=== PATIENT | male | born 1975 | race Caucasian/White ===

== ENCOUNTER → 2016-02-29 | Outpatient (CLI) | payer BC, OTHER ==
[~2016-02-29] MED LIST: ATOR-26 PO; FAMO20TA11 PO; MULT-506 PO
[2016-02-29 17:23] LABS: CHOLESTEROL/HDL RATIO 3.3
== END | disposition home or self-care (01) ==
LOC: C.LABPVFM 14:02
PROVIDERS: ATTEND Family Medicine
DX: E78.00 Pure hypercholesterolemia, unspecified (principal)

== ENCOUNTER → 2016-06-12 | Day surgery (SDC) | payer BC ==
[2016-06-01 13:55] VITALS: Ht 193 cm; Wt 82.3 kg
[~2016-06-12] VITALS: Ht 193 cm; Wt 82.3 kg
[~2016-06-12] MED LIST changes: +LIDOCAINE HCL 2% 2 ML VIAL (20MG/ML) ONE; +MIDAZOLAM HCL 1 MG/ML 2ML VIAL ONE; +ONDANSETRON INJ 2 MG/ML 2 ML VIAL ONE; +PROPOFOL IV EMULSION 10 MG/ML 20 ML VIAL IV ONE; +SODIUM CHLORIDE 0.9% 500ML 500 ML IV ONE
--- NOTE | 2016-06-12 13:23 | Endo History and Physical ---
History & Physical Date of Service: Jun 12, 2016. Chief Complaint: FAMILY HX OF STOMACH CA Referring Physician: DR. EID History of Present Illness 40 yo CM who presents for EGD secondary to family history of stomach cancer. Past Medical History Gastrointestinal Disorder, Reflux, High Cholesterol Past Surgical History Hx Cardiac Surgery: No Hx Internal Defibrillator: No Hx Pacemaker: No Hx Abdominal Surgery: No Hx of Implantable Prosthesis: No Hx Post-Op Nausea and Vomiting: No Hx Cancer Surgery: No Hx Thoracic Surgery: No Hx Orthopedic: No Hx Urinary Tract Surgery: No Family History Colon CA, Polyp Social History Smoking Status: Never Smoker Hx Substance Use: No Hx Alcohol Use: Yes (OCCASSIONALLY) Allergies Coded Allergies: No Known Allergies (Verified , OTHER, 06/01/16) Current Medications Reported Home Medications Medications Dose Route/Sig Max Daily Dose Days Date Category Multivitamin (Multivitamins) Tab 1 Tab PO QAM 05/10/15 Reported Pepcid (Famotidine) 20 Mg Tab 20 Mg PO QAM 05/10/15 Reported Lipitor (Atorvastatin Calcium) 80 Mg Tab 80 Mg PO HS 05/26/14 Reported Vital Signs Weight (Kilograms): 82.27 Height (Feet): 6 Height (Inches): 4 Date Time Temp Pulse Resp B/P Pulse Ox O2 Delivery O2 Flow Rate FiO2 06/12/16 13:19 36.8 68 16 137/83 98 Room Air Physical Exam General Appearance: WD/WN, no apparent distress Respiratory/Chest: Auscultation: breath sounds normal Cardiovascular: Heart Auscultation: RRR Abdomen: Bowel Sounds: normal Inspection & Palpation: soft, non-distended, no tenderness, guarding & rebound Assessment and Plan Assessment: 40 yo CM who presents for EGD secondary to family history of stomach cancer. Plan: Proceed with EGD.
--- NOTE | 2016-06-12 14:11 | Discharge Instructions ---
Endoscopy Patient Instructions Date / Procedure(s) Performed Jun 12, 2016. EGD Allergy Information Coded Allergies: No Known Allergies (Verified , OTHER, 06/12/16) Discharge Date / Findings Jun 12, 2016. Gastric polyp s/p biopsies Medication Instructions OK to resume all medications today as prescribed Provider Instructions Activity Restrictions - No exercising or heavy lifting for 24 hours. - Do not drink alcohol the day of the procedure. - Do not drive a car or operate machinery until the day after the procedure. - Do not make any important decisions or sign important papers in 24 hours after the procedure. Following Day: - Return to full activity which may include returning to work/school. Diet Start your diet with liquids and light foods (jello, soup, juice, toast). Then eat your usual diet if not nauseated. Treatment For Common After Affects For mild abdominal pain, bloating, or excessive gas: - Rest - Eat lightly - Lie on right side Follow-Up Information Follow-up with DR. EID as scheduled Anesthesia Information What You Should Know You have had a procedure that required some medicine to reduce anxiety and discomfort. This treatment is called moderate sedation. After receiving the treatment, you may be sleepy, but you will be able to breathe on your own. The effects of the treatment may last for several hours. Follow these instructions along with Activity/Diet recommendations noted above: * Do NOT do anything where dizziness or clumsiness would be dangerous. * Rest quietly at home today, then you can be up and about tomorrow. * Have a responsible person stay with you the rest of today. * You may have had an I.V. today. If so, you may take the dressing off later today. Recommendations Call your doctor if: * Trouble breathing * Continuous vomiting for more than 24 hours * Temperature above 101 degrees * Severe abdominal pain or bloating * Pain not relieved by pain medicine ordered * There is increased drainage or redness from any incision * A large amount of rectal bleeding greater than 2-3 tablespoons. (If you had a polyp/s removed or have hemorrhoids, a small amount of blood - from the rectum is to be expected.) * You have any unanswered questions or concerns. IN THE EVENT OF A SERIOUS EMERGENCY, GO TO THE NEAREST EMERGENCY ROOM Your discharge instructions were prepared by provider Emery Roldan. Patient Instructions Signature Page Sergio Carlos Patient (or Guardian) Signature/Date: I have read and understand the instructions given to me by my caregivers. Caregiver/RN/Doctor Signature/Date: The above-named patient and/or guardian has received patient instructions on this date. + Original Patient Signature Page (only) stays with chart. Please make copy for patient.
--- NOTE | 2016-06-12 14:13 | GI REPORT ---
Procedure Date: 06/12/2016 1:39 PM Procedure: Upper GI endoscopy Indications: Family history of Stomach cancer Medicines: Monitored Anesthesia Care Complications: No immediate complications. Estimated Blood Loss: Estimated blood loss: none. Procedure: Pre-Anesthesia Assessment: - Prior to the procedure, a History and Physical was performed, and patient medications and allergies were reviewed. The patient's tolerance of previous anesthesia was also reviewed. The risks and benefits of the procedure and the sedation options and risks were discussed with the patient. All questions were answered, and informed consent was obtained. Prior Anticoagulants: The patient has taken no previous anticoagulant or antiplatelet agents. ASA Grade Assessment: II - A patient with mild systemic disease. After reviewing the risks and benefits, the patient was deemed in satisfactory condition to undergo the procedure. After obtaining informed consent, the endoscope was passed under direct vision. Throughout the procedure, the patient's blood pressure, pulse, and oxygen saturations were monitored continuously. The Scope was introduced through the mouth, and advanced to the second part of duodenum. The upper GI endoscopy was accomplished without difficulty. The patient tolerated the procedure well. Findings: The esophagus was normal. A single 3 mm sessile polyp with no stigmata of recent bleeding was found in the gastric fundus. Biopsies were taken with a cold forceps for histology. The examined duodenum was normal. Impression: - Normal esophagus. - A single gastric polyp. Biopsied. - Normal examined duodenum. Recommendation: - Resume previous diet. - Continue present medications. - Await pathology results. - Return to primary care physician as previously scheduled. Emery Roldan DO 06/12/2016 2:12:45 PM This report has been signed electronically. Note Initiated On: 06/12/2016 1:39 PM I attest to the content of the Intraoperative Record and orders documented therein, exceptions below
[2016-06-12 14:35] VITALS: BP 116/84; PULSE 56; O2SAT 99
--- NOTE | 2016-06-12 14:36 | Anesthesiology Progress Note ---
Anesthesia Post Op Note Date & Time Jun 12, 2016 at 14:35 Vital Signs Pain Intensity: 0 Vital Signs Past 12 Hours Date Time Temp Pulse Resp B/P Pulse Ox O2 Delivery O2 Flow Rate FiO2 06/12/16 14:20 67 16 118/86 98 Room Air 06/12/16 14:05 56 16 100/58 98 Room Air 06/12/16 13:19 36.8 68 16 137/83 98 Room Air Notes Mental Status: alert / awake / arousable, participated in evaluation Pt Amnestic to Procedure: Yes Nausea / Vomiting: adequately controlled Pain: adequately controlled Airway Patency, RR, SpO2: stable & adequate BP & HR: stable & adequate Hydration State: stable & adequate Anesthetic Complications: no major complications apparent
== END | disposition home or self-care (01) ==
LOC: C.GI 12:59
PROVIDERS: ATTEND Internal Medicine
DX: K31.7 Polyp of stomach and duodenum (principal); Z80.0 Family history of malignant neoplasm of digestive organs; Z83.71 Family history of colonic polyps; K92.9 Disease of digestive system, unspecified; K21.9 Gastro-esophageal reflux disease without esophagitis; E78.00 Pure hypercholesterolemia, unspecified

== ENCOUNTER → 2017-03-23 | Outpatient (CLI) | payer OTHER ==
[~2017-03-23] MED LIST changes: -LIDOCAINE HCL 2% 2 ML VIAL (20MG/ML) ONE; -MIDAZOLAM HCL 1 MG/ML 2ML VIAL ONE; -ONDANSETRON INJ 2 MG/ML 2 ML VIAL ONE; -PROPOFOL IV EMULSION 10 MG/ML 20 ML VIAL IV ONE; -SODIUM CHLORIDE 0.9% 500ML 500 ML IV ONE
[2017-03-23 12:28] LABS: BASO % 0.4 %; BASO ABS # 0.02 K/uL (0-0.2); EOS % 1.9 %; EOS ABS # 0.11 K/uL (0-0.5); HEMATOCRIT 45.8 % (42-52); HEMOGLOBIN 15.5 g/dL (14.0-18.0); IG# 0.01 K/uL (0.00-0.02); LYMPH % 39.1 %; LYMPH ABS # 2.22 K/uL (1.2-3.4); MEAN CELL VOLUME 90.7 fL (80-100); MEAN CORPUSCULAR HEMOGLOBIN 30.7 pg (25-34); MEAN CORPUSCULAR HGB CONC 33.8 g/dl (32-36); MEAN PLATELET VOLUME 10.8 fL (7.4-10.4); MONO % 8.3 %; MONO ABS # 0.47 K/uL (0.11-0.59); NEUT % 50.1 %; NEUT ABS # 2.85 K/uL (1.4-6.5); PLATELET COUNT 271 K/uL (130-400); RED CELL DISTRIBUTION WIDTH CV 12.6 % (11.5-14.5); RED CELL DISTRIBUTION WIDTH SD 41.5 fL (36.4-46.3); WHITE BLOOD COUNT 5.68 K/uL (4.8-10.8)
[2017-03-23 13:03] LABS: HEMOGLOBIN A1C 5.1 % (4.5-5.6)
[2017-03-23 13:26] LABS: ALBUMIN 4.7 gm/dl (3.4-5.0); ALT/SGPT 37 U/L (12-78); BLOOD UREA NITROGEN 13 mg/dl (7-18); CALCIUM 9.8 mg/dl (8.5-10.1); CARBON DIOXIDE 27 mmol/L (21-32); CHOLESTEROL 106 mg/dl (0-200); GLUCOSE 92 mg/dl (70-99); POTASSIUM 4.2 mmol/L (3.5-5.1); SODIUM 138 mmol/L (136-145)
[2017-03-23 13:29] LABS: ALKALINE PHOSPHATASE 44 U/L (45-117); AST/SGOT 20 U/L (15-37); LDL CHOLESTEROL CALCULATED 43 mg/dl; TOTAL PROTEIN 7.6 gm/dl (6.4-8.2)
== END | disposition home or self-care (01) ==
LOC: C.LABPVFM 08:10
PROVIDERS: ATTEND Family Medicine
DX: Z00.00 Encounter for general adult medical examination without abnormal findings (principal)